=== PATIENT | male | born 1960 | race Caucasian/White ===

== ENCOUNTER 2020-12-18 15:11 | Emergency (ER) | payer OTHER ==
[2020-12-18 15:17] VITALS: TEMP 98
[2020-12-18] MEDS ORDERED: LIDOCAINE 1%-EPI 1:100,000 20 ML VIAL SQ STA (15:36)
[2020-12-18] MEDS ORDERED: DIPH,PERTUS(ACELL)TETVAC-LF 0.5 ML VIAL IM ONE (15:37)
--- NOTE | 2020-12-18 15:40 | ED ---
General Adult HPI - General Chief complaint: Wound/Laceration Stated complaint: Hand/ Wrist laceration Time Seen by Provider: 12/18/20 15:23 Source: patient, RN notes reviewed Mode of arrival: wheelchair Limitations: no limitations - History of Present Illness Initial comments: 60-year-old male presents to the emergency room for a chief of laceration. Patient reports he was holding a box nailer when he went to get something accidentally cut his wrist. He states it was bleeding but he applied a pressure gauze and that did help. He is not up-to-date on tetanus. He denies any loss of sensation in the hand denies any weakness of the fingers in the left hand. Denies any difficulty moving the left hand.Patient has no other complaints at this time including shortness of breath, chest pain, abdominal pain, nausea or vomiting, headache, or visual changes. - Related Data Allergies Allergy/AdvReac Type Severity Reaction Status Date / Time No Known Allergies Allergy Verified 12/18/20 15:14 Review of Systems ROS Statement: Those systems with pertinent positive or pertinent negative responses have been documented in the HPI. ROS Other: All systems not noted in ROS Statement are negative. Past Medical History Past Medical History: No Reported History History of Any Multi-Drug Resistant Organisms: None Reported Past Surgical History: Back Surgery, Orthopedic Surgery Past Psychological History: No Psychological Hx Reported Smoking Status: Never smoker Past Alcohol Use History: None Reported Past Drug Use History: None Reported General Exam Limitations: no limitations General appearance: alert, in no apparent distress Head exam: Present: atraumatic, normocephalic, normal inspection Eye exam: Present: normal appearance, PERRL, EOMI. Absent: scleral icterus, conjunctival injection, periorbital swelling ENT exam: Present: normal exam, mucous membranes moist Neck exam: Present: normal inspection, full ROM. Absent: tenderness, meningismus, lymphadenopathy Respiratory exam: Present: normal lung sounds bilaterally. Absent: respiratory distress, wheezes, rales, rhonchi, stridor Cardiovascular Exam: Present: regular rate, normal rhythm, normal heart sounds. Absent: systolic murmur, diastolic murmur, rubs, gallop, clicks Extremities exam: Present: full ROM (Full range motion of the left hand including all digits in the left wrist.), normal capillary refill (Happily refill less than 2 seconds, radial pulse 2+ left upper extremity.), other (Sensation intact left upper extremity. Patient does have a 4 cm laceration noted to the palmar aspect of the left hand/wrist.). Absent: pedal edema, joint swelling, calf tenderness Course Vital Signs 12/18/20 12/18/20 15:14 16:06 Temperature 98.0 F Pulse Rate 89 Respiratory 16 Rate Blood Pressure 130/89 O2 Sat by Pulse 99 Oximetry Procedures - Laceration Laceration #1 Consent Obtained: verbal consent Indication: laceration Site: upper extremity Size (cm): 4 Description: linear Depth: simple, single layer Anesthetic Used: lidocaine 1%, with epi Anesthesia Technique: local infiltration Amount (mls): 4 Pre-repair: wound explored, irrigated extensively, deep structures intact Type of Sutures: nylon Size of Sutures: 4-0 Number of Sutures: 9 Technique: simple, interrupted Patient Tolerated Procedure: well, no complications Medical Decision Making - Medical Decision Making X-ray left wrist shows no acute fracture or dislocation. Wound was irrigated thoroughly with saline pressure irrigation. It was explored and is actually relatively superficial. It does not involve any deep structure injury such as arteries or tendons. It was repaired using simple interrupted suturing. Discussed return parameters. Patient will return in 10-14 days for suture removal. I did discuss to be very careful of wound given and is on a flexor surface and he could pop the sutures. Disposition Clinical Impression: Laceration Disposition: HOME SELF-CARE Condition: Good Instructions (If sedation given, give patient instructions): Care For Your Stitches (ED), Laceration (ED) Additional Instructions: Please keep area clean. Monitor for signs of infection. Apply antibiotic ointment two to three times per day. Return to the emergency room for any worsening symptoms or signs of infection. Return in 10-14 days for suture removal. Is patient prescribed a controlled substance at d/c from ED?: No Referrals: Jet Dalton Jr, DO [Primary Care Provider] - 1-2 days Time of Disposition: 16:52
[2020-12-18 16:10] VITALS: BP 130/89; PULSE 89; RESP 16
--- NOTE | 2020-12-18 16:17 | XR ---
EXAMINATION TYPE: XR wrist complete LT DATE OF EXAM: 12/18/2020 CLINICAL HISTORY: pain TECHNIQUE: Frontal, lateral and oblique images of the left wrist are obtained. COMPARISON: None. FINDINGS: There is no acute fracture/dislocation evident. The joint spaces appear within normal ga[place] its. Soft tissue laceration without evidence for radiopaque foreign body or fracture. IMPRESSION: There is no acute fracture or dislocation seen. ICD 10 NO FRACTURE, INITIAL EVALUATION
== END 2020-12-18 17:11 | disposition home or self-care (01) ==
LOC: EC 15:11
DX: S61.512A Laceration without foreign body of left wrist, initial encounter (principal); W26.8XXA Contact with other sharp object(s), not elsewhere classified, initial encounter
CPT/HCPCS: 12002; 90471; 90715; 99283

== ENCOUNTER → 2021-01-26 | Outpatient (CLI) | payer OTHER ==
--- NOTE | 2021-01-26 16:31 | US ---
EXAMINATION TYPE: US carotid duplex BILAT DATE OF EXAM: 01/26/2021 COMPARISON: NONE CLINICAL HISTORY: R09.89 OTHER SPECIFIC SYMPTOMS AND SIGNS. EXAM MEASUREMENTS: RIGHT: Peak Systolic Velocity (PSV) cm/sec ----- Right CCA: 68.6 ----- Right ICA: 56.1 ----- Right ECA: 88.9 ICA/CCA ratio: 0.8 RIGHT: End Diastole cm/sec ----- Right CCA: 20.6 ----- Right ICA: 18.7 ----- Right ECA: 37.4 LEFT: Peak Systolic Velocity (PSV) cm/sec ----- Left CCA: 79.6 ----- Left ICA: 64.7 ----- Left ECA: 68.2 ICA/CCA ratio: 0.8 LEFT: End Diastole cm/sec ----- Left CCA: 20.9 ----- Left ICA: 23.8 ----- Left ECA: 12.1 VERTEBRALS (direction of flow): Right Vertebral: Antegrade Left Vertebral: Antegrade Rhythm: Normal No significant stenosis. IMPRESSION: 1. No evidence of hemodynamically significant stenosis of the bilateral internal carotid arteries. Criteria for Assigning % of Stenosis / Diameter reduction (Estimation based on the indirect measurements of the internal carotid artery velocities (ICA PSV). 1. Normal (no stenosis)=ICA PSV < 125 cm/s: ratio < 2.0: ICA EDV<40 cm/s. 2. Less than 50% stenosis=ICA PSV < 125 cm/s: ratio < 2.0: ICA EDV<40 cm/s. 3. 50 to 69% stenosis=ICA PSV of 125 to 230 cm/s: ration 2.0 ? 4.0: ICA EDV 40-100 cm/s. 4. Greater than 70% stenosis to near occlusion= ICA PSV > 230 cm/s: ratio > 4.0: ICA EDV > 100 cm/s. 5. Near occlusion= ICA PSV velocities may be low or undetectable: variable ratio and ICA EDV. 6. Total occlusion=unable to detect flow.
== END | disposition home or self-care (01) ==
LOC: RADUSWWP 10:48
PROVIDERS: ATTEND Family Medicine
DX: R09.89 Other specified symptoms and signs involving the circulatory and respiratory systems (principal); R93.89 Abnormal findings on diagnostic imaging of other specified body structures
CPT/HCPCS: 93880